=== PATIENT | female | born 1985 | race Hispanic/Latino ===

== ENCOUNTER 2017-12-22 18:35 | Observation (INO) | payer BC, MEDICAID ==
[~2017-12-22] VITALS: Ht 160 cm; Wt 60.3 kg
[2017-12-23] MEDS ORDERED: PREN-94 PO (08:04)
== END 2017-12-22 20:15 | disposition home or self-care (01) ==
LOC: EDH 18:35 → LDH 18:55
PROVIDERS: ADMIT Obstetrics & Gynecology; ATTEND Obstetrics & Gynecology
DX: O26.893 Other specified pregnancy related conditions, third trimester (principal); R10.9 Unspecified abdominal pain; M54.9 Dorsalgia, unspecified; O62.9 Abnormality of forces of labor, unspecified; Z3A.38 38 weeks gestation of pregnancy
CPT/HCPCS: 99285; G0378

== ENCOUNTER 2017-12-22 22:46 | Inpatient (IN) | payer BC, MEDICAID ==
[~2017-12-22] VITALS: Ht 160 cm; Wt 60.3 kg
[2017-12-22] MEDS ORDERED: LACTATED RINGERS 1000ML 1,000 ML IV PRN (23:13)
[2017-12-22] MEDS ORDERED: OXYTOCIN-LR 20 UNITS/1000 ML 1,000 ML IV SCH (23:15)
[2017-12-22 23:22] LABS: BILIRUBIN,URINE Negative (NEGATIVE); GLUCOSE, URINE (UA) Negative (NEGATIVE); KETONES,URINE Negative (NEGATIVE); LEUKOCYTE ESTERASE ,URINE Moderate (NEGATIVE); NITRATE,URINE Negative (NEGATIVE); OCCULT BLOOD,URINE Trace (NEGATIVE); PH,URINE 6.5 (5.0-8.0); PROTEIN,URINE Negative (NEGATIVE); UROBILINOGEN,URINE 0.2 mg/dL (0.2-1.0)
[2017-12-22 23:23] LABS: APPEARANCE,URINE CLEAR (CLEAR); COLOR,URINE STRAW (YELLOW)
[2017-12-22 23:31] LABS: BACTERIA,URINE Few /HPF (None Seen); RBC,URINE None Seen /HPF (0-1)
[2017-12-22 23:40] LABS: HEMATOCRIT 35.7 % (36-48); MEAN CORPUSCULAR HEMOGLOBIN 31.1 pg (27.0-33.0); MEAN CORPUSCULAR VOLUME 88.7 fL (79-99); PLATELET COUNT (AUTO) 216 K/uL (130-400); RED BLOOD CELL COUNT(AUTO) 4.02 MIL/uL (4.00-5.50); RED CELL DISTRIBUTION WIDTH 12.7 % (11.0-15.5); WHITE BLOOD COUNT (AUTO) 10.6 K/uL (4.8-10.8)
[2017-12-22] MEDS ORDERED: NALOXONE HCL 0.4 MG/1 ML ML IV PRN (23:45)
[2017-12-22] MEDS ORDERED: LACTATED RINGERS 500 ML 500 ML IV PRN (23:45)
[2017-12-22] MEDS ORDERED: EPHEDRINE SULFATE 50 MG/ML AMPULE IVP PRN (23:45)
[2017-12-23] VITALS (12 sets, daily range): BP systolic 86–116; BP diastolic 48–73
[2017-12-23] MEDS ORDERED: LACTATED RINGERS 1000ML 1,000 ML IV ONE (04:17)
[2017-12-23] MEDS ORDERED: OXYTOCIN 10 USP UNITS/ML ONE (04:18)
[2017-12-23] MEDS ORDERED: HYDROCODONE/ACETAMINOPHEN 5/325 MG TAB PO PRN (05:30)
[2017-12-23] MEDS ORDERED: LANOLIN 30GM OINTMENT TP PRN (05:30)
[2017-12-23] MEDS ORDERED: DIPH,PERTUSS(ACELL),TET VAC/PF 0.5 ML VIAL IM PRN (05:30)
[2017-12-23] MEDS ORDERED: ACETAMINOPHEN-CODEINE 300/30MG TAB PO PRN (05:30)
[2017-12-23] MEDS ORDERED: WITCH HAZEL 1 PAD TP PRN (05:30)
[2017-12-23] MEDS ORDERED: BENZOCAINE/LANOLIN/ALOE VERA 60 ML AEROSOL TP PRN (05:30)
[2017-12-23] MEDS ORDERED: ACETAMINOPHEN 325 MG TAB PO PRN (05:30)
[2017-12-23] MEDS ORDERED: PREN-94 PO (08:04)
[2017-12-23] MEDS: IBUPROFEN 600 MG TABLET PO PRN ×3 (09:14→23:18)
[2017-12-23] MEDS: DOCUSATE SODIUM 100 MG CAP PO SCH ×2 (09:14→21:33)
[2017-12-24 03:47] VITALS: BP 102/55
[2017-12-24 05:14] LABS: HEPATITIS Bs ANTIGEN SCREEN P Negative (Negative)
[2017-12-24 05:27] LABS: HEMATOCRIT 33.4 % (36-48); MEAN CORPUSCULAR HEMOGLOBIN 31.5 pg (27.0-33.0); MEAN CORPUSCULAR HGB CONC 34.8 g/dL (32.0-36.0); MEAN CORPUSCULAR VOLUME 90.5 fL (79-99); PLATELET COUNT (AUTO) 171 K/uL (130-400); RED BLOOD CELL COUNT(AUTO) 3.69 MIL/uL (4.00-5.50); RED CELL DISTRIBUTION WIDTH 13.4 % (11.0-15.5); WHITE BLOOD COUNT (AUTO) 9.1 K/uL (4.8-10.8)
[2017-12-24 07:27] VITALS: BP 96/50
[2017-12-24] MEDS: DOCUSATE SODIUM 100 MG CAP PO SCH (09:06)
[2017-12-24] MEDS: IBUPROFEN 600 MG TABLET PO PRN (09:07)
[2017-12-24 11:27] VITALS: BP 96/51
== END 2017-12-24 12:20 | disposition home or self-care (01) | DRG 775 ==
LOC: EDH 22:46 → OBSVTOIN 22:47 → LDH 22:47 → WSH 12-23 07:18
PROVIDERS: ADMIT Obstetrics & Gynecology; ATTEND Obstetrics & Gynecology
PROC: 10E0XZZ Delivery of Products of Conception, External Approach (ICD-10-PCS; principal; 2017-12-23)
PROC: 3E0R3BZ Introduction of Anesthetic Agent into Spinal Canal, Percutaneous Approach (ICD-10-PCS; 2017-12-23)
PROC: 00HU33Z Insertion of Infusion Device into Spinal Canal, Percutaneous Approach (ICD-10-PCS; 2017-12-23)
PROC: 3E0234Z Introduction of Serum, Toxoid and Vaccine into Muscle, Percutaneous Approach (ICD-10-PCS; 2017-12-23)
DX: O99.344 Other mental disorders complicating childbirth (principal); F32.9 Major depressive disorder, single episode, unspecified; Z23 Encounter for immunization; Z37.0 Single live birth; Z3A.38 38 weeks gestation of pregnancy
CPT/HCPCS: 36415; 81001; 85027; 86592; 86850; 86900; 86901; 87340; 90715; A4314; J2590; J7120

== ENCOUNTER 2018-01-02 17:26 | Emergency (ER) | payer BC, MEDICAID ==
[~2018-01-02 17:26] MED LIST: PREN-94 PO
== END 2018-01-02 18:49 | disposition home or self-care (01) ==
LOC: EDH 17:26
DX: O90.89 Other complications of the puerperium, not elsewhere classified (principal); M79.605 Pain in left leg; Z79.899 Other long term (current) drug therapy
CPT/HCPCS: 93971